=== PATIENT | male | born 1950 | race Caucasian/White ===

== ENCOUNTER 2021-01-13 11:27 | Outpatient (CLI) | payer OTHER, SELFPAY ==
--- NOTE | 2021-01-13 | DI.MRI_ITS ---
Exam(s) MR ANGIO BRAIN WO EXAM: MR ANGIO BRAIN WO INDICATION: CVA I63.9, POSTERIOR CIRCULATION CVA'S ON RECENT MRI. COMPARISON: MR MRI BRAIN WO from 01/12/2021 TECHNIQUE: MR angiography of the [id number] region was performed utilizing 3D ijhr-nw-wjrvta i maging. FINDINGS: The visualized internal carotid arteries appear intact, no aneurysm, stenosis, or dissection. Visualized vertebral arteries appear intact, no aneurysm, stenosis or dissection. Left dominant vert ebral artery circulation noted. Basilar artery appears normal, no aneurysm, stenosis, or dissection. The anterior cerebral arteries and major branch vessels appear intact. No aneurysm, stenosis, or dis section. The middle cerebral arteries and major branch vessels appear intact. No aneurysm, stenosis, or disse ction. The posterior cerebral arteries and major branch vessels appear intact. No aneurysm, stenosis, or di ssection. IMPRESSION: Negative MR angiography, [id number] region.
--- OUTSIDE RECORDS SUMMARY | 2021-01-13 11:28 | XMS_ITS ---
:1950 Author Care Team Providers Name Role Phone ABBI RASCON MD Aircraft [employer]ulic Equipment [employer]ic [phone] FIDEL BROOKS MD Aircraft [employer]ulic Equipment Mechanic [phone] JOANN WEINSTEIN Primary Care Provider [phone] Allergies Code Code System Name Reaction Severity Status Onset NKDA ? Notes: No seafood allergy. No kn own contrast allergy. Medications Name Status Start Date Stop Date ? ? Advair Diskus 250 mcg-50 mcg/dose powder for inhalation Complete d ? 09/10/2018 Inhale 1 puff twice a day by inhalation route for 90 days. Advair HFA 230 mcg-21 Active ? Not availa ble mcg/actuation aerosol inhaler amoxicillin 500 mg-potassium Completed ? 04/2019 clavulanate 125 mg tablet amoxicillin 875 mg-potassium Completed ? clavulanate 125 mg tablet Anoro Ellipta 62.5 mcg-25 mcg/actuation powder for inhalatio n Completed 04/25/2016 06/26/2017 1 (one) Aero Pow Br Act: daily aspirin 325 mg tablet Completed ? 06/25/2019 Take 1 tablet every day by oral route. aspirin 81 mg tablet,delayed release Active ? Not available Take 1 tablet every day by oral route. atenolol 50 mg tablet Completed 05/04/2015 05/18/2015 1 Tablet: qd - daily atorvastatin 20 mg tablet Active ? Not av ailable azithromycin 250 mg tablet Completed ? 04/23 clindamycin 1 % topical gel Completed ? 08/15 clotrimazole 1 % topical cream Active ? N ot available doxycycline monohydrate 100 mg Completed ? 0 12/30/2019 capsule duloxetine 20 mg capsule,delayed Completed ? 09/10/2018 release duloxetine 40 mg capsule,delayed Active ? Not available release FreeStyle Lancets 28 gauge Active ? Not a vailable FreeStyle Lite Meter kit Active ? Not catherine ilable FreeStyle Test strips Active ? Not availa ble daily hydrochlorothiazide 12.5 mg tablet Completed 12/28/2014 08/10/2015 1 (one) Tablet: daily Incruse Ellipta 62.5 mcg/actuation powder for inhalation Complet ed ? 01/13/2019 Inhale 1 puff every day by inhalation route for 90 days. ipratropium 0.5 mg-albuterol 3 mg Active ? Not available (2.5 mg base)/3 mL nebulization soln Jardiance 10 mg tablet Active ? Not avail able Take 1 tablet(s) every day by oral route in the morning for 30 days. lancets 30 gauge Active ? Not available daily lansoprazole 30 mg capsule,delayed Active ? Not available release levothyroxine 100 mcg capsule Active ? No t available Take 1 capsule every day by oral route. levothyroxine 50 mcg tablet Completed ? 12/13 lisinopril 5 mg tablet Completed 05/04/2015 5 1 (one) Tablet: daily metformin 1,000 mg tablet Active ? Not av ailable Take 1 tablet twice a day by oral route. metformin 500 mg tablet Completed ? 12/30/19 20 oxycodone-acetaminophen 5 mg-325 Completed ? 04/23/2019 mg tablet paroxetine 10 mg tablet Completed 12/26/2015 04/25/20 16 1 (one) Tablet: bid - twice daily prednisone 10 mg tablet Completed ? 12/30/19 20 ProAir HFA 90 mcg/actuation aerosol inhaler Completed ? 12/30/2019 Inhale 2 puffs every 4 hours by inhalation route. sertraline 25 mg tablet Completed 09/16/2012 11/26/19 15 1 Tablet: qd - daily Shingrix (PF) 50 mcg/0.5 mL Active ? Not available intramuscular suspension, kit Spiriva Respimat 2.5 mcg/actuation Active ? Not available solution for inhalation Spiriva with HandiHaler 18 mcg and inhalation capsules Completed 11/25/2014 04/05/2015 1 (one) Capsule Aerosol Soln: daily Synthroid 75 mcg tablet Completed ? 12/30/19 20 tamsulosin 0.4 mg capsule Active ? Not av ailable Valium 5 mg tablet Completed ? 04/23/2019 Take 1 tablet every 6-8 hours by oral route. Viagra 100 mg tablet Active ? Not availab le Take 0.5 tablets every day by oral route as needed. vitamin B12 500 mcg-folic acid 400 mcg tablet Completed 11/25/2014 1 Tablet: tid - three times a day Vitamin D2 Active ? Not available once daily Vitamin D2 1,250 mcg (50,000 unit) capsule Completed 09/1611/25/2014 1 Capsule: weekly Notes: 08/27/2019 with list from home Problems Name Status Onset Date Source ? Hidradenitis Suppurativa Active 03/11/2018 ? Benign Prostatic Hyperplasia Active 12/09/2018 ? Tinea Pedis Unknown 01/09/2019 ? Atypical Chest Pain Active 04/23/2019 ? Hypothyroidism Active ? History Type 2 Diabetes Mellitus without Active ? History Complication Mixed Hyperlipidemia Unknown ? History Hyperlipidemia Active ? History Obesity Active ? History Anxiety Active ? History Impotence Unknown ? History Nicotine Dependence Unknown ? History Depressive Disorder Active ? History Hypertensive Disorder Active ? History Chronic Obstructive Lung Disease Active ? History Gastro-esophageal Reflux Disease with Unknown ? History Esophagitis Gastroesophageal Reflux Disease Active ? History Neck Pain Unknown ? History Impaired Fasting Glycemia Unknown ? Histor y [place] of Lung Unknown ? History Active Immunization Unknown ? History Needs Assistance at Home Unknown ? History Adult Health Examination Active ? History Screening for Malignant Neoplasm of Unknown ? History Prostate Screening for Cardiovascular System Unknown ? History Disease Long-term Current Use of Drug Therapy Unknown ? History Hemorrhage of Rectum and Anus Unknown ? Hi story SNOMED CT Concept Unknown ? History Procedure by Method Unknown ? History Procedures Date Name Performed by ? 10/15/2018 Ldct for Lung Ca Screen Information not available Notes: 3 stable nodules 09/13/2009 Colonoscopy Information not avai lable Notes: hx of sigmoid prolapse on colo noscopy 200607/15/1995 Hernia Repair Information not avai lable Notes: Bilateral Inguinal Hernia Repa irs ? Tonsillectomy Information not avai lable Notes: as child 08/14/2018 LDCT, Chest, for Lung Cancer Screening [facility] Radiology (Internal) [address], [place] [id number] (Work Place) 04/23/2019 Electrocardiogram [facility] [address] [place] [address] (Work Place) 05/06/2019 Stress Echocardiogram [facility] (Internal) [address] [place] [address] (Work Place) 08/27/2019 LDCT, Chest, for Lung Cancer Screening [facility] Radiology (Internal) [address], [place] [id number] (Work Place) 08/31/2019 US, Abdominal Aorta [facility]Internal) [address], [place] [id number] (Work Place) Results Lab Results Date Name Specimen Result Interpretation Description Value Range Status Address ? 09/06/2019 CBC W/ Auto BLD ? Wbc 7.0 5.0-10.0 Final [place] Diff 10*3/uL 10*3/uL [facility] L ab (Internal) : [address] ? ? BLD ? Rbc 5.83 4.60-6.00 Final [place] 10*6/uL 10*6/uL [facility] L ab (Internal) : [address] ? ? BLD ? Hgb 16.6 g/dL 14.0-18.0 Final Nort h g/dL [facility] L ab (Internal) : [address] ? ? BLD High Hct 51.2 % 41.0-51.[address] [facility] L ab (Internal) : [address] ? ? BLD ? Mcv 87.8 fL 80.0-96.0 Final [facility] L ab (Internal) : [address] ? ? BLD ? Mch 28.5 pg 26.0-32.0 Final [facility] L ab (Internal) : [address] ? ? BLD ? Mchc 32.4 g/dL 31.0-35.0 Final Nort h g/dL [facility] L ab (Internal) : [address] ? ? BLD ? Rdw 14.0 % 11.5-14.[address] [facility] L ab (Internal) : [address] ? ? BLD ? Plt 188 130-450 Final [place] 10*3/uL 10*3/uL [facility] L ab (Internal) : [address] 09/06/2019 Differential, BLD ? Polys 67 % 40-75 % Final [facility], Blood [facility] L ab (Internal) : [address] ? ? BLD ? Bands 0 % 0-5 % Final [facility] L ab (Internal) : [address] ? ? BLD Low Lymphs 12 % 20-50 % Final [facility] L ab (Internal) : [address] ? ? BLD High [place] 15 % 2-10 % Final [facility] L ab (Internal) : [address] ? ? BLD ? Eos 5 % 0-6 % Final [facility] ab (Internal) : [address] ? ? BLD ? Baso 1 % 0-1 % Final [facility] ab (Internal) : [address] ? ? BLD ? Atyp Lymph 0 % ? Final [facility] ab (Internal) : [address] ? ? BLD ? Plts, Est. adequate adequate Final [facility] L ab (Internal) : [address] ? ? BLD ? RBC normal normal Final [facility] L ab (Internal) : [address] t 09/06/2019 Neutrophil BLD ? Anc-manual 4.70 ? Delmy l [place] Count, 10*3/uL [facility] Lab (Anc), Blood (Int ernal): [address] 09/06/2019 CMP, Serum or S High g/r 153 mg/dL 74-106 Fin al [place] Plasma mg/dL [facility] L ab (Internal) : [address] ? ? S ? Bun 11 mg/dL 9-20 Final North mg/dL [facility] L ab (Internal) : [address] ? ? S ? Crea 0.70 0.66-1.25 Final North mg/dL mg/dL [facility] L ab (Internal) : [address] ? ? S ? Ca 9.4 mg/dL 8.4-10.2 Final North mg/dL [facility] L ab (Internal) : [address] ? ? S Low Na 136 137-145 Final North mmol/L mmol/L [facility] (Internal) : [address] ? ? S ? K 4.0 3.5-5.1 Final [facility] mmol/L mmol/L [facility] (Internal) : [address] ? ? S ? Cl 99 mmol/L 98-107 Final [facility] mmol/L [facility] (Internal) : [address] ? ? S ? Tco2 24.0 22.0-30.0 Final [place] mmol/L mmol/L [facility] (Internal) : [address] ? ? S ? Tp 7.4 g/dL 6.3-8.2 Final [facility] g/dL [facility] (Internal) : [address] ? ? S ? Alb 4.4 g/dL 3.5-5.0 Final [facility] g/dL [facility] (Internal) : [address] ? ? S ? Tbil 1.3 mg/dL 0.2-1.3 Final [facility] mg/dL [facility] (Internal) : [address] ? ? S ? Alp 105 U/L 38-126 Final North U/L [facility] L ab (Internal) : [address] ? ? S ? Alt (Sgpt) 27 U/L 21-72 U/L Final [facility] (Internal) : [address] ? ? S ? Ast (Sgot) 26 U/L 17-59 U/L Final [facility] (Internal[facility] : [address] t 09/06/2019 Troponin I, S ? Trop <0.06 0.00-0.06 Final [place] Serum or NG/mL NG/mL [facility] L ab (Internal) : [address] t 09/06/2019 BNP (B-type S ? Nt-probnp 95 pg/mL 0-125 Fi nal [place] Natriuretic pg/mL Count ry Peptide), Hospita l Lab Prohormone (Inter nal): N-terminal, [address], [place] Immunoassay, Blood 08/18/2019 HbA1C BLD High Ha1C 7.1 % 4.0-6.0 % Final Nor th (Hemoglobin Count ry a1C), Blood Hospi erasto Lab (Internal) : [address] 08/18/2019 PSA, Serum or S High PSA Scrn 6.8 NG/mL 0.0-4.0 Final [place] Plasma NG/mL [facility] (Internal) : [address] 05/06/2019 HbA1C BLD High Ha1C 9.0 % 4.0-6.0 % Final Nor th (Hemoglobin Count ry a1C), Blood Hospi erasto Lab (Internal) : [address] 05/06/2019 CMP, Serum or S High g/r 182 mg/dL 74-106 Fin al [place] Plasma mg/dL [facility] (Internal) : [address] ? ? S - Bun 14 mg/dL 9-20 Final North mg/dL [facility] (Internal) : [address] ? ? S - Crea 0.90 0.66-1.25 Final North mg/dL mg/dL [facility] (Internal) : [address] ? ? S - Ca 9.2 mg/dL 8.4-10.2 Final [facility] mg/dL [facility] (Internal) : [address] ? ? S - Na 138 137-145 Final [place] mmol/L mmol/L [facility] (Internal) : [address] ? ? S - K 4.2 3.5-5.1 Final [place] mmol/L mmol/L [facility] (Internal) : [address] ? ? S - Cl 101 98-107 Final [place] mmol/L mmol/L [facility] (Internal) : [address] ? ? S - Tco2 28.0 22.0-30.0 Final [place] mmol/L mmol/L [facility] (Internal) : [address] ? ? S - Tp 7.1 g/dL 6.3-8.2 Final [place] g/dL [facility] (Internal) : [address] ? ? S - Alb 4.0 g/dL 3.5-5.0 Final [place] g/dL [facility] (Internal) : [address] ? ? S - Tbil 1.1 mg/dL 0.2-1.3 Final North mg/dL [facility] L ab (Internal) : [address] ? ? S - Alp 99 U/L 38-126 Final [place] U/L [facility] (Internal) : [address] ? ? S - Alt (Sgpt) 31 U/L 21-72 U/L Final No rth [facility] L ab (Internal) : [address] ? ? S - Ast (Sgot) 27 U/L 17-59 U/L Final No rth [facility] L ab (Internal) : [address] 05/06/2019 Lipid Panel, S - Chol 140 mg/dL 50-200 Delmy l [place] Serum mg/dL [facility] L ab (Internal) : [address] ? ? S High Trig 178 mg/dL 10-150 Final [place] mg/dL [facility] (Internal) : [address] ? ? S Low Hdl 33 mg/dL 40-60 Final [place] mg/dL [facility] (Internal) : [address] ? ? S - Ldl 71 mg/dL 0-130 Final North mg/dL [facility] L ab (Internal) : [address] 05/06/2019 Microalbumin, UR High Malb 28.5 mg/L 5.0-16.7 F inal North Urine mg/L [facility] L ab (Internal) : [address] ? ? UR High U-crea, 247 mg/dL 30-125 Final North Spot mg/dL [facility] L ab (Internal) : [address] ? ? UR - Microalb/cr 11.6 0.0-30.0 Final No rth ea Ratio ug/mg ug/mg [facility] L ab (Internal) : [address] 05/06/2019 TSH, Serum or S - Tsh 3.09 0.47-4.68 Fin al [place] Plasma u[IU]/mL u[IU]/mL [facility] L ab (Internal) : [address] 04/23/2019 Electrocardiog ? Rate & ? ? ? P_nc Primary cece Rhythm Care [place]: 1 86 [facility] [place] ? ? ? Qrs ? ? ? P_nc Prima ry Care [place]: 1 86 [facility] [place] ? ? ? GA Interval ? ? ? P_nc Primary Care [place]: 1 86 [facility] [place] ? ? ? QRS ? ? ? P_nc Prima ry Duration Care [place]: 1 86 [facility] [place] ? ? ? QT Interval ? ? ? P_nc Primary Care [place]: 1 86 [facility] [place] 02/21/2019 CBC W/ Auto BLD High Wbc 10.2 5.0-10.0 Final [place] Diff 10*3/uL 10*3/uL [facility] L ab (Internal) : [address] ? ? BLD - Rbc 5.64 4.60-6.00 Final [place] 10*6/uL 10*6/uL [facility] L ab (Internal) : [address] ? ? BLD - Hgb 16.2 g/dL 14.0-18.0 Final Nort h g/dL [facility] L ab (Internal) : [address] ? ? BLD - Hct 48.8 % 41.0-51.[address] [facility] L ab (Internal) : [address] ? ? BLD - Mcv 86.5 fL 80.0-96.0 Final [facility] (Internal) : [address] ? ? BLD - Mch 28.7 pg 26.0-32.0 Final [facility] L ab (Internal) : [address] ? ? BLD - Mchc 33.2 g/dL 31.0-35.0 Final Nort h g/dL [facility] L ab (Internal) : [address] ? ? BLD - Rdw 13.1 % 11.5-14.[address] [facility] L ab (Internal) : [address] ? ? BLD - Plt 241 130-450 Final [place] 10*3/uL 10*3/uL [facility] L ab (Internal) : [address] ? ? BLD - Anc 6.96 ? Final [place] 10*3/uL [facility] L ab (Internal) : [address], [place] [address] ? ? BLD - Neutro 68.1 % 40.0-75.0 Final [facility] L ab (Internal) : [address] ? ? BLD Low Lymph 19.8 % 20.0-50.0 Final [facility] L ab (Internal) : [address] ? ? BLD - [place] 8.9 % 2.0-10.[address] [facility] L ab (Internal) : [address] ? ? BLD - Eos 2.2 % 1.0-6.0 % Final [facility] L ab (Internal) : [address] ? ? BLD - Baso 0.6 % 0.0-1.0 % Final [facility] L ab (Internal) : [address] ? ? BLD - Ig 0.4 % 0.0-0.9 % Final [facility] L ab (Internal) : [address] 02/21/2019 CMP, Serum or S High g/r 300 mg/dL 74-106 Fin al [place] Plasma mg/dL [facility] L ab (Internal) : [address] ? ? S - Bun 13 mg/dL 9-20 Final [place] mg/dL [facility] L ab (Internal) : [address] ? ? S - Crea 0.90 0.66-1.25 Final North mg/dL mg/dL [facility] L ab (Internal) : [address] ? ? S - Ca 9.6 mg/dL 8.4-10.2 Final [place] mg/dL [facility] L ab (Internal) : [address] ? ? S Low Na 136 137-145 Final [place] mmol/L mmol/L [facility] L ab (Internal) : [address] ? ? S - K 4.6 3.5-5.1 Final [place] mmol/L mmol/L [facility] L ab (Internal) : [address] ? ? S - Cl 98 mmol/L 98-107 Final North mmol/L [facility] L ab (Internal) : [address] ? ? S - Tco2 27.0 22.0-30.0 Final [place] mmol/L mmol/L [facility] L ab (Internal) : [address] ? ? S - Tp 7.5 g/dL 6.3-8.2 Final [place] g/dL [facility] L ab (Internal) : [address] ? ? S - Alb 4.4 g/dL 3.5-5.0 Final [place] g/dL [facility] L ab (Internal) : [address] ? ? S - Tbil 1.0 mg/dL 0.2-1.3 Final [place] mg/dL [facility] L ab (Internal) : [address] ? ? S - Alp 97 U/L 38-126 Final [place] U/L [facility] L ab (Internal) : [address] ? ? S - Alt (Sgpt) 27 U/L 21-72 U/L Final No rth [facility] L ab (Internal) : [address] ? ? S - Ast (Sgot) 27 U/L 17-59 U/L Final No rth [facility] L ab (Internal) : [address] 02/21/2019 Prothrombin BLD - Pt 10.0 S 9.1-11.7 Final North Time S [facility] L ab (Internal) : [address] ? ? BLD - Inr 1.0 ? Final [facility] L ab (Internal) : [address] 02/21/2019 Troponin I, S - Trop <0.06 0.00-0.06 Final [place] Serum or NG/mL NG/mL [facility] L ab (Internal) : [address] 09/26/2018 Fecal Occult Stool ? No ? ? ? P_nc Primary Blood, Stool observation Care recorded. [place] : [address] [place] [address] 09/12/2018 HbA1C BLD High Ha1C 7.8 % 4.0-6.0 % Final Nor th (Hemoglobin Count ry a1C), Blood [facility]pi [facility] Lab (Internal) : [address] 09/12/2018 PSA, Serum or S - PSA Scrn 2.4 NG/mL 0.0-4.0 Final [place] Plasma NG/mL [facility] (Internal) : [address] 09/12/2018 Microalbumin, UR High Malb 16.8 mg/L 5.0-16.7 F inal [place] Urine mg/L [facility] (Internal) : [address] ? ? UR - U-crea, 106 mg/dL 30-125 Final [place] Spot mg/dL [facility] (Internal) : [address] ? ? UR - Microalb/cr 15.9 0.0-30.0 Final No rth ea Ratio ug/mg ug/mg [facility] (Internal) : [address] 09/12/2018 CMP, Serum or S High g/r 155 mg/dL 74-106 Fin al [place] Plasma mg/dL [facility] (Internal) : [address] ? ? S - Bun 17 mg/dL 9-20 Final [place] mg/dL [facility] (Internal) : [address] ? ? S - Crea 0.70 0.66-1.25 Final [place] mg/dL mg/dL [facility] (Internal) : [address] ? ? S - Ca 9.0 mg/dL 8.4-10.2 Final [place] mg/dL [facility] (Internal) : [address] ? ? S - Na 137 137-145 Final [place] mmol/L mmol/L [facility] (Internal) : [address] ? ? S - K 4.5 3.5-5.1 Final [place] mmol/L mmol/L [facility] (Internal) : [address] ? ? S - Cl 99 mmol/L 98-107 Final [place] mmol/L [facility] (Internal) : [address] ? ? S - Tco2 28.0 22.0-30.0 Final [place] mmol/L mmol/L [facility] (Internal) : [address] ? ? S - Tp 7.1 g/dL 6.3-8.2 Final [place] g/dL [facility] (Internal) : [address] ? ? S - Alb 4.2 g/dL 3.5-5.0 Final [place] g/dL [facility] (Internal) : [address] ? ? S - Tbil 1.1 mg/dL 0.2-1.3 Final [place] mg/dL [facility] (Internal) : [address] ? ? S - Alp 77 U/L 38-126 Final [place] U/L [facility] (Internal) : [address] ? ? S - Alt (Sgpt) 25 U/L 21-72 U/L Final No rth [facility] (Internal) : [address] ? ? S - Ast (Sgot) 22 U/L 17-59 U/L Final No rth [facility] (Internal) : [address] 09/12/2018 Lipid Panel, S - Chol 135 mg/dL 50-200 Delmy l [place] Serum mg/dL [facility] (Internal) : [address] ? ? S - Trig 98 mg/dL 10-150 Final [place] mg/dL [facility] (Internal) : [address] ? ? S Low Hdl 31 mg/dL 40-60 Final [place] mg/dL [facility] (Internal) : [address] ? ? S - Ldl 84 mg/dL 0-130 Final [place] mg/dL [facility] (Internal) : [address] 03/06/2018 HbA1C BLD High Ha1C 6.3 % 4.0-6.0 % Final Nor th (Hemoglobin Count ry a1C), Blood [facility]pi [facility] Lab (Internal) : [address] 03/06/2018 PSA, Serum or S - PSA Scrn 2.7 NG/mL 0.0-4.0 Final [place] Plasma NG/mL [facility] (Internal) : [address] 03/06/2018 TSH, Serum or S High Tsh 4.86 0.47-4.68 Fin al [place] Plasma u[IU]/mL u[IU]/mL [facility] L ab (Internal) : [address] 09/20/2017 Venipuncture BLD ? Venpn* ? ? Final [facility] L ab (Internal) : [address] 09/20/2017 CMP, Serum or S High g/r 160 mg/dL 74-106 Fin al [place] Plasma mg/dL [facility] L ab (Internal) : [address] ? ? S ? Bun 13 mg/dL 9-20 Final [place] mg/dL [facility] L ab (Internal) : [address] ? ? S ? Crea 0.80 0.66-1.25 Final [place] mg/dL mg/dL [facility] L ab (Internal) : [address] ? ? S ? Ca 9.1 mg/dL 8.4-10.2 Final [place] mg/dL [facility] L ab (Internal) : [address] ? ? S ? Na 140 137-145 Final North mmol/L mmol/L [facility] L ab (Internal) : [address] ? ? S ? K 4.0 3.5-5.1 Final [place] mmol/L mmol/L [facility] L ab (Internal) : [address] ? ? S ? Cl 99 mmol/L 98-107 Final North mmol/L [facility] L ab (Internal) : [address] ? ? S ? Tco2 26.0 22.0-30.0 Final [place] mmol/L mmol/L [facility] L ab (Internal) : [address] ? ? S ? Tp 7.1 g/dL 6.3-8.2 Final [place] g/dL [facility] L ab (Internal) : [address] ? ? S ? Alb 4.3 g/dL 3.5-5.0 Final [place] g/dL [facility] L [facility] (Internal) : [address] ? ? S ? Tbil 1.1 mg/dL 0.2-1.3 Final [place] mg/dL [facility] L ab (Internal) : [address] ? ? S ? Alp 97 U/L 38-126 Final [place] U/L [facility] (Internal) : [address] ? ? S ? Alt (Sgpt) 41 U/L 21-72 U/L Final No rth [facility] L ab (Internal) : [address] ? ? S ? Ast (Sgot) 22 U/L 17-59 U/L Final No rth [facility] (Internal) : [address] 09/20/2017 Lipid Panel, S ? Chol 150 mg/dL 50-200 Delmy l [place] Serum mg/dL [facility] L ab (Internal) : [address] ? ? S ? Trig 122 mg/dL 10-150 Final [place] mg/dL [facility] L ab (Internal) : [address] ? ? S Low Hdl 38 mg/dL 40-60 Final [place] mg/dL [facility] L ab (Internal) : [address] ? ? S ? Ldl 88 mg/dL 0-130 Final [place] mg/dL [facility] L ab (Internal) : [address] [facility] t 06/26/2017 Venipuncture BLD ? Venpn* ? ? Final [facility] L ab (Internal) : [address] t 06/26/2017 HbA1C BLD High Ha1C 9.1 % 4.0-6.0 % Final [place] [facility] (Hemoglobin Count ry a1C), Blood [facility]pi [facility] Lab (Internal) : [address] t 03/12/2017 Venipuncture BLD ? Venpn* ? ? Final [facility] ab (Internal) : [address] 03/12/2017 HbA1C BLD High Ha1C 7.0 % 4.0-6.0 % Final [place] [facility] (Hemoglobin Count ry a1C), Blood [facility] Lab (Internal) : [address] [facility] 02/06/2017 Venipuncture BLD ? Venpn* ? ? Final [facility] L ab (Internal) : [address] 02/06/2017 PSA, Serum or S ? PSA Scrn 3.1 NG/mL 0.0-4.0 Final [place] Plasma NG/mL [facility] (Internal[facility] : [address] 02/06/2017 Lipid Panel, S ? Chol 176 mg/dL 50-200 Delmy l [place] Serum mg/dL [facility] (Internal) : [address] ? ? S ? Trig 149 mg/dL 10-150 Final [facility] [address] ? ? S Low Hdl 36 mg/dL 40-60 Final [place] mg/dL [facility] : [address] ? ? S ? Ldl 110 mg/dL 0-130 Final [place] mg/dL [facility] ([facility]) : [address] 02/06/2017 TSH, Serum or S ? Tsh 2.94 0.47-4.68 Fin al [place] Plasma u[IU]/mL u[IU]/mL [facility] : [address] 02/06/2017 CMP, Serum or S High g/r 176 mg/dL 74-106 Fin al [place] Plasma mg/dL [facility] : [address] t ? ? S ? Bun 16 mg/dL 9-20 Final [place] mg/dL [facility] ([facility]) : [address] t ? ? S ? Crea 0.80 0.66-1.25 Final [place] mg/dL mg/dL [facility] : [address] t ? ? S ? Ca 8.8 mg/dL 8.4-10.2 Final [place] mg/dL [facility] : [address] t ? ? S ? Na 137 137-145 Final [place] mmol/L mmol/L [facility] : [address] t ? ? S ? K 4.1 3.5-5.1 Final [place] mmol/L mmol/L [facility] ([facility] : [address] t ? ? S ? Cl 106 98-107 Final [place] mmol/L mmol/L [facility] : [address] t ? ? S ? Tco2 23.0 22.0-30.0 Final [place] mmol/L mmol/L [facility] ([facility]) : [address] t ? ? S ? Tp 7.4 g/dL 6.3-8.2 Final [place] g/dL [facility] ([facility] : [address] t ? ? S ? Alb 4.3 g/dL 3.5-5.0 Final [place] g/dL [facility] ([facility] : [address] t ? ? S ? Tbil 1.3 mg/dL 0.2-1.3 Final [place] mg/dL [facility] ([facility] : [address] t ? ? S ? Alp 105 U/L 38-126 Final [place] U/L [facility] ([facility]) : [address] t ? ? S ? Alt (Sgpt) 42 U/L 21-72 U/L Final No rth [facility] (Internal) : [address] t ? ? S ? Ast (Sgot) 26 U/L 17-59 U/L Final No rth [facility] ([facility] : [address] t 02/06/2017 CBC W/ Auto BLD ? Wbc 7.4 5.0-10.0 Final [place] Diff 10*3/uL 10*3/uL [facility] : [address] t ? ? BLD ? Rbc 5.47 4.60-6.00 Final [place] 10*6/uL 10*6/uL [facility] ([facility]) : [address] t ? ? BLD ? Hgb 16.1 g/dL 14.0-18.0 Final Nort h g/dL [facility] ([facility] : [address] t ? ? BLD ? Hct 47.0 % 41.0-51.0 Final [place] % [facility] ([facility]) : [address] t ? ? BLD ? Mcv 85.9 fL 80.0-96.0 Final [facility] : [address] t ? ? BLD ? Mch 29.4 pg 26.0-32.0 Final [facility] (Internal) : [address] t ? ? BLD ? Mchc 34.3 g/dL 31.0-35.0 Final Nort h g/dL [facility] ([facility] : [address] t ? ? BLD ? Rdw 13.1 % 11.5-14.[address] [facility] (Internal) : [address] ? ? BLD ? Plt 206 130-450 Final [place] 10*3/uL 10*3/uL [facility] (Internal) : [address] t ? ? BLD ? Anc 4.70 ? Final [place] 10*3/uL [facility] (Internal) : [address] t ? ? BLD ? Neutro 63.3 % 40.0-75.[address] [facility] (Internal) : [address] t ? ? BLD ? Lymph 23.7 % 20.0-50.[address] [facility] (Internal) : [address] t ? ? BLD ? [place] 8.8 % 2.0-10.[address] [facility] (Internal) : [address] t ? ? BLD ? Eos 2.6 % 1.0-6.0 % Final [facility] (Internal) : [address] t ? ? BLD High Baso 1.2 % 0.0-1.0 % Final [facility] (Internal) : [address] t ? ? BLD ? Ig 0.4 % 0.0-0.9 % Final [facility] (Internal) : [address] t 09/18/2016 Venipuncture BLD ? Venpn* ? ? Final [facility] ([facility]) : [address] t 09/18/2016 Lipid Panel, S ? Chol 164 mg/dL 50-200 [place] Serum mg/dL [facility] ([facility]) : [address] ? ? S ? Trig 131 mg/dL 10-150 Final [place] mg/dL [facility] (Internal) : [address] ? ? S Low Hdl 38 mg/dL 40-60 Final [place] mg/dL [facility] (Internal) : [address] ? ? S ? Ldl 100 mg/dL 0-130 Final [place] mg/dL [facility] (Internal) : [address] Past Encounters 12/30/2019 Atypical Chest Pain; Chronic Obstructive Lung Disease Abbi Rascon MD: [address] [place] [address], Ph. 08/27/2019 Screening for Malignant Neoplasm of Resp iratory Tract; Raised Prostate Specific Antigen; Adult Health Examination; Hypothyroidism; Type 2 Diabetes Mellitus without Complication CARISA Seymour: [address] [place] [address], Ph. Social History Tobacco Smoking Status Current Every Day Smoker Notes: qu it 2012, 45 pack years, 1 ppd since [age] years old 12/30/19 smoking pipe Vaccine List Vaccine Type COVID-19, mRNA, LNP-S, PF, 100 mcg/0.5 m L dose 09/22/2020?0.5 mL 10/19/2020?100 mcg influenza, high dose seasonal 06/26/2017?0.5 mg influenza, seasonal, injectable 09/25/2013 05/18/2015?0.5 mL 04/25/2016?0.5 mL influenza, seasonal, injectable, preserv ative free 05/30/2012 influenza, trivalent, adjuvanted 04/23/2019?0.5 mL pneumococcal conjugate PCV 13 05/18/2015?0.5 mL pneumococcal polysaccharide PPV23 07/15/2001 06/26/2017?0.5 mL Td (adult), adsorbed 07/15/2006 Tdap 05/11/2011 zoster live 05/31/2016 zoster recombinant 04/23/2019?0.5 mL 06/25/2019?0.5 mL Plan of Care Reminders Provider Appointments None ? ? recorded. Lab None ? ? recorded. Referral None ? ? recorded. Procedures None ? ? recorded. Surgeries None ? ? recorded. Imaging None ? ? recorded. Vitals 12/30/2019 02:15PM Follow Up 15 Height Weight BMI Blood Pressure 164.47 cm 103.45 kg 38.2 kg/m2 136/86 mm[Hg] 08/27/2019 10:40AM AWV 40 Height Weight BMI Blood Pressure 164.47 cm 104.55 kg 38.7 kg/m2 118/82 mm[Hg] 06/25/2019 09:40AM Follow Up 20 Height Weight BMI Blood Pressure 164.47 cm 104.37 kg 38.6 kg/m2 138/84 mm[Hg] 06/16/2019 09:30AM Follow Up 30 Height Blood Pressure 164.47 cm 147/94 mm[Hg] 05/19/2019 10:00AM Follow Up 20 Height Weight BMI Blood Pressure 164.47 cm 104.58 kg 38.7 kg/m2 120/80 mm[Hg] 05/06/2019 09:45AM Consult 45 Height Weight BMI Blood Pressure 164.47 cm 103.63 kg 38.3 kg/m2 116/84 mm[Hg] 04/23/2019 09:20AM Acute 40 Height Weight BMI Blood Pressure 164.47 cm 102.97 kg 38.1 kg/m2 130/88 mm[Hg] 02/25/2019 03:40PM Acute 20 Height Weight BMI Blood Pressure 164.47 cm 103.87 kg 38.4 kg/m2 130/70 mm[Hg] 01/09/2019 10:00AM Follow Up 20 Height Weight BMI Blood Pressure 164.47 cm 101.74 kg 37.6 kg/m2 114/82 mm[Hg] 12/09/2018 07:40AM Acute 20 Height Weight BMI Blood Pressure 164.47 cm 102.83 kg 38 kg/m2 124/76 mm[Hg] 09/10/2018 01:20PM Follow Up 20 Height Weight BMI Blood Pressure 164.47 cm 101.21 kg 37.4 kg/m2 110/64 mm[Hg] 03/11/2018 03:00PM AWV 40 Height Weight BMI Blood Pressure 164.47 cm 95.16 kg 35.2 kg/m2 108/62 mm[Hg] 06/26/2017 Weight Blood Pressure 100.38 kg 116/80 mm[Hg] 03/04/2017 Weight Blood Pressure 101.79 kg 130/92 mm[Hg] 08/15/2016 Height Weight Blood Pressure 163.83 cm 100.7 kg 126/84 mm[Hg] 05/30/2016 Height Weight Blood Pressure 164.47 cm 101.15 kg 136/88 mm[Hg] 04/25/2016 Height Weight Blood Pressure 164.47 cm 97.07 kg 112/84 mm[Hg] 01/25/2016 Height Weight Blood Pressure 164.47 cm 97.07 kg 136/86 mm[Hg] 12/26/2015 Height Weight Blood Pressure 164.47 cm 97.52 kg 124/84 mm[Hg] 08/10/2015 Height Weight Blood Pressure 164.47 cm 100.92 kg 114/76 mm[Hg] 05/18/2015 Height Weight Blood Pressure 162.56 cm 100.02 kg 110/62 mm[Hg] 05/04/2015 Height Weight Blood Pressure 162.56 cm 98.43 kg 122/80 mm[Hg] 04/05/2015 Height Weight Blood Pressure 162.56 cm 98.43 kg 134/80 mm[Hg] 12/28/2014 Weight Blood Pressure 98.66 kg 104/72 mm[Hg] 11/25/2014 Weight Blood Pressure 96.16 kg 120/74 mm[Hg]
== END 2021-01-13 11:47 ==
PROVIDERS: Visit Provider Physician Assistant
DX: I63.9 Cerebral infarction, unspecified (principal)
CPT/HCPCS: 70544

== ENCOUNTER → 2023-05-13 01:54 | Outpatient (CLI) | payer OTHER, SELFPAY ==
--- NOTE | 2023-05-13 09:32 | DI.RAD_ITS ---
Exam(s) RF MODIFIED SPEECH BA SWALLOW TECHNIQUE: Modified barium swallow was performed in conjunction with speech pathology. CONTRAST MATERIAL: Multiple consistencies of oral barium contrast were administered. COMPARISON: No exams were available for comparison FINDINGS: Note that this is not a dedicated esophagram, distal esophagus not evaluated. There is no evidence of aspiration or penetration with any consistency. Speech pathology report to follow. IMPRESSION: No evidence of aspiration or penetration. RADIATION DOSE DELIVERED: isma Osorio=8.02 mGy
--- NOTE | 2023-05-13 09:52 | ST.MBS ---
Date of Service Date of service: 05/13/23 Time of Service: 09:00 Modified Barium Swallow Study Findings: Video fluoroscopic Swallowing Evaluation (VFSE) / Modified Barium Swallow Study (MBSS) Speech Language Pathology Report Patient referred for VFSE/MBSS from Dr. Marina Camacho given concern for aspiration contributing to respiratory complications/bronchiectasis flares. HPI & Patient report of function: Patient is a 73 year old male with PMH significant for history of multiple CVAs with residual dysphagia symptoms in addition to hx COPD and bronchiectasis. He was referred for MBS to rule out chronic aspiration contributing to respiratory complications/bronchiectasis flares. His was present for the study and assisted with providing history- stating his initial CVA was ~20 years ago, after which she had to temporarily puree his food. He was also found to have posterior circulation CVAs on MRI in January 2021, per diagnostics report. No other records on file at this facility. Currently Marcus eats regular solids/thin liquids. He has frequent sometimes daily episodes of coughing with/after meals. They denied concerns with weight. PMHx: CVAs, COPD, Bronchiectasis Previous Imaging: Patient's reports prior MBS completed in [place] last year, though they never received results or had follow up with [facility]. Report not available for review. IMPRESSIONS: Marcus Alexis presents with mild oral pharyngeal sensorimotor dysphagia and suspected esophageal dysphagia. 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 This mostly clears with subsequent dry swallow, though could be problematic within the context of a meal- and thus this finding may be most correlated with patient's symptoms. Additional findings include: prolonged mastication and mild delay in pharyngeal swallow reflex initiation, with the thin liquid bolus reaching top of pyriforms at time of swallow onset. In addition, there is mild decrease in laryngeal elevation/anterior motion and mildly reduced pharyngeal wall movement. Collectively this results in transient penetration intermittently with thin liquids- though this is very shallow and considered 'flash'/WNL for age. There is no aspiration/deep penetration or pharyngeal retention aside from what was previously mentioned. Overall, swallow safety and efficiency are preserved. Risk for developing potential aspiration PNA/pulmonary complication from prandial aspiration is considered low, though patient would benefit from 1-2 [facility] sessions to review findings and provide behavioral modifications to maximize swallow safety. With known history of reflux, he would also benefit from education re: risks for post prandial/nocturnal aspiration and precautions to mitigate risks. Specialist referrals:? GI consult may be beneficial for consideration of upper endoscopy with dilation. Will discuss with patient/ at next visit. Ancillary tests: May consider EGD/Upper GI Endoscopy RECOMMENDATIONS: Diet Texture Recommendation:? IDDSI LEVEL SOLIDS 7-Regular Solids. Favor extra moisture and avoid dry/crunchy solids unless you can chew them fully to applesauce consistency. LIQUIDS 0-Thin Liquids MEDICATIONS Whole with 0-Thin Liquids Diet texture modification is per patient's preference; please adjust diet textures at patient's discretion & collaboration with care team. Do not alter medications (e.g., cut)? without advice from your MD or pharmacist. Risk Management Strategies:? Behavioral reflux precautions, including upright position during + 90 mins after meals. Small bites, approx [id number] Small sips, approx 10 mL Multiple swallows per bolus to encourage clearance of pharyngeal stasis/residue PLAN: Therapy: Recommend subsequent outpatient session with [facility] to review results of today's exam and develop treatment plan as appropriate. May consider the following: Further Compensatory Strategy Training Further Training/Education in Risk Management Goals: Patient/family will verbalize comprehension of education provided re: dysphagia dx, VFSS findings, and recommendations. Patient will return demonstration of safe swallowing strategies in the context of a snack. Follow-up exam: N/A OBJECTIVE Videofluoroscopic Swallow Evaluation (VFSE/MBSS) was conducted in the lateral projection by Speech-Language Pathologist, in collaboration with Radiologist, to evaluate oropharyngeal swallow function. Anatomic view under fluoroscopy: WFL PO Barium Contrast Trials Oral barium water-soluble contrast was administered as follows: IDDSI Level 0 Varibar thin liquid (40% w/v) IDDSI Level 2 Varibar nectar thick/mildly thick liquid (40% w/v) IDDSI Level 4 Varibar pudding/pureed/extremely thick (40% w/v) IDDSI Level 7 Regular Solid: 1/2 benita cracker coated in 3 mL Varibar pudding MBSImP Component Scores: COMPONENT Scale SCORE 1 Lip closure (0-4) 0 Resulted in no labial escape 2 Hold Position (0-3) 0 Maintained a cohesive bolus between tongue to palatal seal 3 Bolus Preparation (0-4) 1 Resulted in slow prolonged chewing/mashing with complete re-collection 4 Bolus Transport (0-4) 0 Was with brisk tongue motion 5 Oral Residue (0-4) 1 Was a trace, lining oral structures 6 Swallow Initiation (0-4) 3 Occurred when the bolus head was in the pyriform sinuses 7 Soft Palate Elevation (0-4) 0 Resulted in no bolus between soft palate and the pharyngeal wall 8 Laryngeal Elevation (0-3) 1 Was decreased with partial superior movement of thyroid cartilage/partial approximation of arytenoids to epiglottic petiole 9 Anterior Hyoid Motion (0-2) 1 Demonstrated partial anterior movement 10 Epiglottic Movement (0-2) 0 Resulted in complete inversion 11 Laryngeal Closure (0-2) 1 Was incomplete with narrow a column of air/contrast in laryngeal vestibule 12 Pharyngeal Stripping Wave (0-2) 1 Was present, but diminished 13 Pharyngeal Contraction (0-3) NA 14 PES Opening (0-3) 1 Demonstrated partial distension/partial duration, with partial obstruction of flow 15 Tongue Base Retraction (0-4) 0 Allowed no contrast between the tongue base and posterior pharyngeal wall 16 Pharyngeal Residue (0-4) 1 Showed a trace within or on pharyngeal structures 17 Esophageal Clearance (0-4) NA Results: COMPONENT Scale SCORE 1 Oral Score (0-18) 4 2 Pharyngeal Score (0-29) 5 3 Esophageal Score (0-4) 0 Functional Oral Intake Scale: COMPONENT Scale SCORE 1 Pre-Study (1-7) NA 2 Post-Study (1-7) 7 Total oral intake with no restrictions Penetration-Aspiration Scale: COMPONENT Scale SCORE 1 Thin liquid (1-8) 2 Contrast entered the airway, remained above the vocal folds, and was ejected from the airway. 2 Arnot thick (1-8) 1 Contrast did not enter the airway 3 Honey thick (1-8) NA 4 Pudding thick (1-8) 1 Contrast did not enter the airway 5 Cookie (1-8) 1 Contrast did not enter the airway Thank you for allowing us to take part in this patient's care. Please feel free to contact the [facility] Speech Language Pathology Department with any questions/concerns. Coding CPT Codes MOTION FLUOROSCOPY/SWALLOW - [id number] ([id number])
[2023-05-13] MEDS: Barium Sulfate Oral Paste 40% W/V 230 ML TUBE 60 ML PO (10:05)
[2023-05-13] MEDS: Barium Sulfate 81% w/w for Oral Suspension 148 GM BTL 120 GM PO (10:06)
[2023-05-13] MEDS: Barium Sulfate 40% W/V 240 ML BTL PO (10:08)
== END ==
PROVIDERS: PCP Internal Medicine; Visit Provider Internal Medicine
DX: R13.12 Dysphagia, oropharyngeal phase (principal)
CPT/HCPCS: 92526; 92611; 74221